=== PATIENT | male | born 1960 | race Caucasian/White ===

== ENCOUNTER 2017-05-07 10:14 | Emergency (ER) | payer OTHER ==
[~2017-05-07] VITALS: Ht 175.3 cm; Wt 93.0 kg
[~2017-05-07 10:14] MED LIST: ASPI325T32 PO; HYG25 PO; OMEG500C PO; PRE20 PO
[2017-05-07 10:29] VITALS: BP 204/107; PULSE 90; RESP 14; O2SAT 96
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
[2017-05-07 10:36] VITALS: BP 144/94; PULSE 88; RESP 14; O2SAT 96
[2017-05-07] MEDS ORDERED: Ketorolac 15 mg/mL Inj IVPUSH ONE (10:50)
[2017-05-07] MEDS ORDERED: HYDR-4003 PO (12:03)
[2017-05-07] MEDS ORDERED: IBUP-1827 PO (12:03)
[2017-05-07 12:19] VITALS: BP 195/100; PULSE 78; RESP 16; O2SAT 97
[2017-05-07] MEDS ORDERED: HYDROcodone-APAP 5-325 mg Tablet PO ONE (12:20)
[2017-05-07 12:31] VITALS: BP 195/100; PULSE 78; RESP 16; O2SAT 97
== END 2017-05-07 12:35 | disposition home or self-care (01) ==
LOC: SED 10:14 → EDBD 10:14 → SED 12:35
DX: S39.012A Strain of muscle, fascia and tendon of lower back, initial encounter (principal); M54.10 Radiculopathy, site unspecified; X50.1XXA Overexertion from prolonged static or awkward postures, initial encounter; Y93.89 Activity, other specified; Y92.9 Unspecified place or not applicable; Y99.8 Other external cause status; E11.9 Type 2 diabetes mellitus without complications; I10 Essential (primary) hypertension; J44.9 Chronic obstructive pulmonary disease, unspecified; Z87.891 Personal history of nicotine dependence
CPT/HCPCS: 96374; 96375; 99284; J1885; J3360

== ENCOUNTER 2017-05-07 18:21 | Emergency (ER) | payer OTHER ==
[~2017-05-07 18:21] MED LIST changes: +HYDR-4003 PO; +IBUP-1827 PO
[2017-05-07 18:31] VITALS: BP 192/125; PULSE 86; RESP 18; O2SAT 97
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
[2017-05-07] MEDS ORDERED: HYDROmorphone 1 mg/mL Inj IM ONE (19:00)
[2017-05-07] MEDS ORDERED: HYDROmorphone 1 mg/mL Inj IVPUSH ONE (19:00)
[2017-05-07 20:34] VITALS: BP 205/129; PULSE 86; RESP 16; O2SAT 94
== END 2017-05-07 20:36 | disposition home or self-care (01) ==
LOC: SED 18:21
DX: M54.40 Lumbago with sciatica, unspecified side (principal); X50.1XXA Overexertion from prolonged static or awkward postures, initial encounter; Y93.89 Activity, other specified; Y92.89 Other specified places as the place of occurrence of the external cause; Y99.8 Other external cause status; I10 Essential (primary) hypertension; J44.9 Chronic obstructive pulmonary disease, unspecified; E11.9 Type 2 diabetes mellitus without complications; Z98.890 Other specified postprocedural states; Z79.82 Long term (current) use of aspirin; Z87.891 Personal history of nicotine dependence
CPT/HCPCS: 96372; 99284; J1170